=== PATIENT | female | born 1965 | race Hispanic/Latino ===

== ENCOUNTER → 2018-11-17 | Outpatient (CLI) | payer OTHER ==
[~2018-11-17] MED LIST: CETI10TA57 PO; GLIP5TAB11 PO; LANS15CA17 PO; LEVO100T12 PO; LISI10TA7 PO; METF500S7 PO; ROSU20TA31 PO; [UNRECOGNIZED DRUG - CODE] PO
== END | disposition home or self-care (01) ==
LOC: OIH 16:34
PROVIDERS: ATTEND Family Medicine
DX: M17.11 Unilateral primary osteoarthritis, right knee (principal)
CPT/HCPCS: 73562

== ENCOUNTER → 2019-03-30 | Outpatient (CLI) | payer OTHER | END | disposition home or self-care (01) | LOC: OIH 16:21 | PROVIDERS: ATTEND Family Medicine | DX: M79.641 Pain in right hand (principal) | CPT/HCPCS: 73130 ==

== ENCOUNTER → 2019-04-26 | Outpatient (CLI) | payer OTHER | END | disposition home or self-care (01) | LOC: OIH 13:30 | PROVIDERS: ATTEND Family Medicine | DX: S29.9XXD Unspecified injury of thorax, subsequent encounter (principal); X58.XXXD Exposure to other specified factors, subsequent encounter; M47.814 Spondylosis without myelopathy or radiculopathy, thoracic region | CPT/HCPCS: 71046; 73000 ==

== ENCOUNTER → 2019-09-06 | Outpatient (CLI) | payer OTHER ==
[~2019-09-06] MED LIST changes: +ASPI-556 PO; +CALC600T15 PO; -CETI10TA57 PO; +CHOL200013 PO; +DAPA5TAB PO; +DICL100G31 TP; +FLUT15.845 NS; -GLIP5TAB11 PO; -LISI10TA7 PO; +LORA-705 PO; +MAGN100T5 PO; -ROSU20TA31 PO; +SPIR25TA6 PO; +ZINC50TA64 PO
== END | disposition home or self-care (01) ==
LOC: RAH 13:46
PROVIDERS: ATTEND Obstetrics & Gynecology
DX: Z12.31 Encounter for screening mammogram for malignant neoplasm of breast (principal)
CPT/HCPCS: 77067

== ENCOUNTER → 2019-12-10 | Outpatient (CLI) | payer OTHER | END | disposition home or self-care (01) | LOC: RAH 13:36 | PROVIDERS: ATTEND Family Medicine | DX: M17.11 Unilateral primary osteoarthritis, right knee (principal); M19.071 Primary osteoarthritis, right ankle and foot; M77.51 Other enthesopathy of right foot and ankle; M20.11 Hallux valgus (acquired), right foot | CPT/HCPCS: 73560; 73620 ==